=== PATIENT | male | born 1985 | race Caucasian/White ===

== ENCOUNTER 2022-09-16 15:30 | Emergency (ER) | payer SELFPAY ==
--- NOTE | ~2022-09-16 | US_ITS ---
EXAMINATION: US venous doppler [facility] DATE: 09/16/2022 17:04 INDICATION: Left lower limb swelling TECHNIQUE: Grayscale ultrasound images without and with compression and Doppler ultrasound images of the left lower extremity veins were obtained. COMPARISON: None. FINDINGS: The visualized portions of left common femoral vein, profunda (deep) femoral vein, femoral vein, popl iteal vein, peroneal veins, posterior tibial veins, gastrocnemius vein and greater saphenous vein out flow are patent. IMPRESSION: 1. No deep venous thrombosis in the left lower limb. Reviewed, dictated and finalized at location A.
[2022-09-16 15:36] VITALS: BP 132/70; PULSE 85; RESP 18; TEMP 36.7; O2SAT 97
--- NOTE | 2022-09-16 17:24 | ED.EXTPRO ---
HPI - Extremity Problem General Chief complaint: Extremity Problem,Nontraumatic Stated complaint: left leg Time Seen by Provider: 09/16/22 16:35 History of Present Illness HPI Narrative: Patient is a 37-year-old male who presents ER with concerns for DVT. Noticed a spot over his left calf couple days ago and has become more firm and moves up towards his knee. No chest pain or shortness of breath or hemoptysis. He feels like he can feel an enlarged vein in his leg and the left thigh. No recent trauma. Related Data Allergies Allergy/AdvReac Type Severity Reaction Status Date / Time Penicillins Allergy Hives Verified 09/16/22 15:32 Review of Systems Constitutional: Constitutional: Denies chills and Denies fever(s) Cardiovascular: Cardiovascular: Denies chest pain and Denies rapid heart rate Comments: No lower extremity edema Respiratory: Respiratory: Denies cough and Denies dyspnea Comments: No pain with deep breath Musculoskeletal: Musculoskeletal: Denies arthralgias and Denies muscle cramps Comments: Pain over the left anterior medial calf moving proximally towards the knee PMFSH Past Medical History Medical History (Updated 09/16/22 @ 17:31 by Rayo Plascencia MD) Healthy adult male Surgical History Surgical History (Updated 09/16/22 @ 17:27 by Rayo Plascencia MD) No history of previous surgery Social History Social History (Updated 09/16/22 @ 17:27 by aRyo Plascencia MD) Smoking status: Never smoker Exam Narrative: GENERAL: Well-appearing, well-nourished, and in no acute distress. HEAD: Normocephalic, atraumatic. ENT: Mucous membranes moist. EXTREMITIES: Normal range of motion. No edema. Palpable cord left anterior medial thompson. Slightly warm to touch but no redness. SKIN: Warm, dry, no rash. NEURO: Alert and oriented x3. PSYCH: Normal mood and affect. Course Course Emergency Course: Suspect patient has superficial thrombophlebitis given exam. No DVT on ultrasound. Patient does have a varicose vein to the left anterior thigh. Discussed treatment plan and patient verbalized understanding. Vital Signs Vital signs: Vital Signs Temperature 98.0 F 09/16/22 15:36 Pulse Rate 85 09/16/22 15:36 Respiratory Rate 18 09/16/22 15:36 Blood Pressure 132/70 09/16/22 15:36 Pulse Oximetry 97 09/16/22 15:36 Oxygen Delivery Room Air 09/16/22 15:36 Temperature 98.0 F 09/16/22 15:36 Pulse Rate 85 09/16/22 15:36 Respiratory Rate 18 09/16/22 15:36 Blood Pressure 132/70 09/16/22 15:36 Pulse Oximetry 97 09/16/22 15:36 Oxygen Delivery Room Air 09/16/22 15:36 Discharge Plan Discharge Clinical Impression: Superficial thrombophlebitis Patient Disposition: Home, Self-Care Condition: Stable Instructions: Superficial Thrombophlebitis (ED) Additional Instructions: Return the ER if you have increased pain, you have chest pain or shortness of breath, you lose consciousness, you have additional concerns. Prescriptions: New naproxen 375 mg tablet 375 mg PO BID Qty: 14 0RF Follow-up/Referrals: Fadi Zelaya DO [Primary Care Provider] - 1 Week
== END 2022-09-16 17:52 | disposition home or self-care (01) ==
PROVIDERS: Emergency Provider Emergency Medicine; PCP Family Medicine
DX: I80.02 Phlebitis and thrombophlebitis of superficial vessels of left lower extremity (principal)
CPT/HCPCS: 93971; 99284